=== PATIENT | female | born 1995 | race American Indian/Alaskan Native ===

== ENCOUNTER 2018-08-31 21:44 | Emergency (ER) | payer OTHER ==
[2018-08-31 23:01] LABS: Bacteria,Urine 1+ /HPF (Negative); Bilirubin,Urine NEG (Negative); Blood,Urine NEG (Negative); Color,Urine Yellow (Yellow); Mucus,Urine 2+ /HPF; Urobilinogen,Urine < 2.0 mg/dL (<2.0); WBC,Urine > 182.0 /HPF (0.0-6.0)
[2018-08-31 23:02] LABS: HCG Qualitative,Urine Negative (Negative)
[2018-09-01] MEDS ORDERED: ZOFRAN ODT PO ONE (00:58)
[2018-09-01] MEDS ORDERED: IBUPROFEN PO ONE (00:58)
[2018-09-01] MEDS ORDERED: MACROBID PO ONE (00:58)
--- NOTE | 2018-09-01 01:40 | Emergency Department Report ---
ED Female HPI - General Chief complaint: Abdominal Pain Stated complaint: UTI ABDOMINAL PAIN Time Seen by Provider: 09/01/18 00:58 Source: patient Mode of arrival: Ambulatory Limitations: No Limitations - History of Present Illness Initial comments: Patient is a 23-year-old -[place] female who presents for dysuria frequency urgency 2 days patient denies vaginal discharge no hematuria no flank or back pain no nausea vomiting pain is described as 3/10 and suprapubic cramping and spasm per patient patient denies flow problem again no hematuria no history of renal stones no fever or chills MD Complaint: dysuria Onset/Timin -: days(s) Location: suprapubic Radiation: suprapubic Severity: moderate Severity scale (0 -10): 4 Consistency: intermittent Improves with: none Worsens with: urination Are you Now?: No Last Menstrual Period: 08/15/18 EDC: 05/22/19 Associated Symptoms: abdominal pain (superpubic pain ), dysuria. denies: nausea/vomiting, fever/chills, hematuria - Related Data Sexually active: No Previous Rx's Medication Instructions Recorded Last Taken Type Ibuprofen 800 mg PO TID PRN #30 tablet 09/01/18 Unknown Rx Nitrofurantoin Monohyd/M-Cryst 100 mg PO BID 7 Days #14 capsule 09/01/18 Unknown Rx [Macrobid 100 mg Capsule] Allergies Allergy/AdvReac Type Severity Reaction Status Date / Time No Known Allergies Allergy Unverified 02/06/16 17:05 ED Review of Systems ROS: Stated complaint: UTI ABDOMINAL PAIN Other details as noted in HPI Constitutional: denies: chills, fever Eyes: denies: eye pain, eye discharge, vision change ENT: denies: ear pain, throat pain Respiratory: denies: cough, shortness of breath, wheezing Cardiovascular: denies: chest pain, palpitations Endocrine: no symptoms reported Gastrointestinal: denies: abdominal pain, nausea, diarrhea Genitourinary: urgency, dysuria, frequency. denies: hematuria, discharge, abnormal menses, dyspareunia Musculoskeletal: denies: back pain, joint swelling, arthralgia Skin: denies: rash, lesions Neurological: denies: headache, weakness, paresthesias Psychiatric: denies: anxiety, depression Hematological/Lymphatic: denies: easy bleeding, easy bruising ED Past Medical Hx - Past Medical History Previous Medical History?: No - Surgical History Past Surgical History?: No - Social History Smoking Status: Never Smoker Substance Use Type: None - Medications Home Medications: Home Medications Medication Instructions Recorded Confirmed Last Taken Type Ibuprofen 800 mg PO TID PRN #30 tablet 09/01/18 Unknown Rx Nitrofurantoin Monohyd/M-Cryst 100 mg PO BID 7 Days #14 capsule 09/01/18 Unknown Rx [Macrobid 100 mg Capsule] ED Physical Exam - General Limitations: No Limitations General appearance: alert, in no apparent distress - Head Head exam: Present: atraumatic, normocephalic - Eye Eye exam: Present: normal appearance, EOMI - ENT ENT exam: Present: mucous membranes moist - Neck Neck exam: Present: normal inspection, full ROM - Respiratory Respiratory exam: Present: normal lung sounds bilaterally. Absent: respiratory distress, stridor - Cardiovascular Cardiovascular Exam: Present: regular rate, normal rhythm, normal heart sounds. Absent: systolic murmur, diastolic murmur, rubs, gallop - GI/Abdominal GI/Abdominal exam: Present: soft, normal bowel sounds. Absent: distended, tenderness, bruit, hernia - Rectal Rectal exam: Present: deferred - Extremities Exam Extremities exam: Present: normal inspection, full ROM, normal capillary refill - Back Exam Back exam: Present: normal inspection, full ROM. Absent: tenderness, CVA tenderness (R), CVA tenderness (L), rash noted - Neurological Exam Neurological exam: Present: alert, oriented X3, CN II-XII intact, normal gait - Psychiatric Psychiatric exam: Present: normal affect, normal mood - Skin Skin exam: Present: warm, dry, intact, normal color. Absent: rash ED Course Vital Signs 08/31/18 09/01/18 21:57 01:19 Temperature 98.5 F Pulse Rate 86 Respiratory 18 16 Rate Blood Pressure 112/72 O2 Sat by Pulse 100 Oximetry ED Medical Decision Making - Lab Data Labs 08/31/18 Unknown Urine Color Yellow Urine Turbidity Slightly-cloudy Urine pH 7.0 Ur Specific [place] 1.013 Urine Protein 30 mg/dl Urine Glucose (UA) Neg Urine Ketones Neg Urine Blood Neg Urine Nitrite Neg Urine Bilirubin Neg Urine Urobilinogen < 2.0 Ur Leukocyte Esterase Lg Urine WBC (Auto) > 182.0 H Urine RBC (Auto) 22.0 U Epithel Cells (Auto) 1.0 Urine Bacteria (Auto) 1+ Urine WBC Clumps 2+ Urine Mucus 2+ Urine HCG, Qual Negative - Medical Decision Making HCG: neg, UA : pos for leuk, wbc, rbc, pt denies fever or chills no n/v pt denies urinary flow problem no hematuria no hx of renal stones there is no vaginal discharge no vagina bleeding , plan dc to home with rx for macrobid, ibuprofen, pt will follow up with pcp in 2 days pt verbalized agreement and understanding of discharge plan. Critical care attestation.: If time is entered above; I have spent that time in minutes in the direct care of this critically ill patient, excluding procedure time. ED Disposition Clinical Impression: UTI (urinary tract infection) Qualifiers: Urinary tract infection type: acute cystitis Hematuria presence: without hematuria Qualified Code(s): N30.00 - Acute cystitis without hematuria Disposition: DC-01 TO HOME OR SELFCARE Is pt being admited?: No Does the pt Need Aspirin: No Condition: Stable Instructions: Abdominal Pain (ED) Prescriptions: Ibuprofen 800 mg PO TID PRN #30 tablet PRN Reason: pain Nitrofurantoin Monohyd/M-Cryst [Macrobid 100 mg Capsule] 100 mg PO BID 7 Days #14 capsule Referrals: [facility] [Outside] - 3-5 Days Forms: Work/School Release Form(ED) Time of Disposition: 01:50
[2018-09-01 02:00] VITALS: BP 110/71
== END 2018-09-01 02:00 | disposition home or self-care (01) ==
LOC: ED 21:44
DX: N39.0 Urinary tract infection, site not specified (principal)
CPT/HCPCS: 81001; 81025; Q0162

== ENCOUNTER 2019-08-08 13:55 | Emergency (ER) | payer SELFPAY ==
--- NOTE | 2019-08-08 14:43 | Emergency Department Report ---
ED Rash HPI - HPI Location: Chest, Back Suspected Cause: Other Rash Symptoms: Yes Blistering, No Itching, No Facial Swelling, No Tongue/Oral Swelling, No Breathing Difficulties, No Choking Sensation, No Wheezing/Dyspnea, No Peeling, No Fever, No Lightheaded, No Malaise, No Myalgias Severity: moderate Other History: This is a 24-year-old female who presents the ED complaining of red painful rash localized to her under her breasts going across to her back. Patient states she noticed this rash on Monday 6 days ago. Patient states she has been putting cortisone cream on it thinking it was a rash. Until her dad told her with shingles. He denies fever/chills/nausea vomiting or any other symptoms. <MAULIK TORRES - Last Filed: 08/08/19 17:07> <FLORENCE VALLEJO - Last Filed: 08/08/19 18:28> - HPI Chief Complaint: Skin Rash Stated Complaint: SHINGLES Time Seen by Provider: 08/08/19 14:34 ED Review of Systems ROS: Stated complaint: SHINGLES Other details as noted in HPI Comment: All other systems reviewed and negative <MAULIK TORRES - Last Filed: 08/08/19 17:07> ROS: Stated complaint: SHINGLES Other details as noted in HPI <FLORENCE VALLEJO - Last Filed: 08/08/19 18:28> ED Past Medical Hx - Past Medical History Previous Medical History?: No - Surgical History Past Surgical History?: No - Social History Smoking Status: Never Smoker <MAULIK TORRES - Last Filed: 08/08/19 17:07> <FLORENCE VALLEJO - Last Filed: 08/08/19 18:28> - Medications Home Medications: Home Medications Medication Instructions Recorded Confirmed Last Taken Type Ibuprofen [Ibuprofen 800] 800 mg PO TID PRN #30 tablet 09/01/18 Unknown Rx Nitrofurantoin Monohyd/M-Cryst 100 mg PO BID 7 Days #14 capsule 09/01/18 Unknown Rx [Macrobid 100 mg Capsule] Acyclovir [Zovirax Tab] 800 mg PO Q8H #30 tab 08/08/19 Unknown Rx Ibuprofen [Motrin] 800 mg PO Q8HR #30 tablet 08/08/19 Unknown Rx Lidocaine HCl [Pain Relief] 1 day TP TID #1 cream..g. 08/08/19 Unknown Rx Rash Exam - Exam General: Vital signs noted. No distress. Alert and acting appropriately. HEENT: No Periorbital Edema, No Conjuctival Injection, No Chemosis, No Perioral Edema, No Tongue Edema, No Uvular Edema, No Compromised Airway, No Drooling Lungs: Yes Good Air Exchange (Normal Breath Sounds), No Wheezes, No Ronchi, No Stridor, No Cough, No Labored Respirations, No Retractions, No Use of Accessory Muscles, No Other Abnormal Lung Sounds Heart: Yes Regular, No Murmur Skin: Yes Maculopapular Rash, Yes Bulla(e), Yes Tenderness, Yes Erythema, No Urticarial Rash, No Morbilliform rash, No Excoriations, No Weeping, No Edema, No Encrustations, No Other (Grouped vesicular, erythematous raised lesions spread from right under breast along the dermatome to the back) Other: Positive: Abdomen Normal, Neurologic Normal, Musculoskeletal Normal <MAULIK TORRES - Last Filed: 08/08/19 17:07> - Exam General: Vital signs noted. No distress. Alert and acting appropriately. <FLORENCE VALLEJO - Last Filed: 08/08/19 18:28> ED Course Vital Signs 08/08/19 13:59 Temperature 98.0 F Pulse Rate 90 Respiratory 20 Rate Blood Pressure 114/77 O2 Sat by Pulse 100 Oximetry <MAULIK TORRES - Last Filed: 08/08/19 17:07> Vital Signs 08/08/19 08/08/19 13:59 15:35 Temperature 98.0 F 98.2 F Pulse Rate 90 77 Respiratory 20 16 Rate Blood Pressure 114/77 Blood Pressure 106/68 [Right] O2 Sat by Pulse 100 Oximetry <FLORENCE VALLEJO - Last Filed: 08/08/19 18:28> ED Medical Decision Making - Medical Decision Making This 24-year-old female presents with shingles dermatitis. Discussed that rash is contagious. Discussed medication and take as prescribed. Vital signs are normal patient is in no acute distress. Discussed with patient to follow-up with her primary care physician. <MAULIK TORRES - Last Filed: 08/08/19 17:07> - Medical Decision Making I had an extensive conversation with Rita. I was informed by pharmacy operations manager that she is . I strongly recommended not to take the acyclovir. In fact I have discontinued acyclovir and ibuprofen prescriptions. I recommended Tylenol and lidocaine cream. Her main concern is severe pain. <FLORENCE VALLEJO - Last Filed: 08/08/19 18:28> Critical care attestation.: If time is entered above; I have spent that time in minutes in the direct care of this critically ill patient, excluding procedure time. <MAULIK TORRES - Last Filed: 08/08/19 17:07> Critical care attestation.: If time is entered above; I have spent that time in minutes in the direct care of this critically ill patient, excluding procedure time. <FLORENCE VALLEJO - Last Filed: 08/08/19 18:28> ED Disposition Is pt being admited?: No Does the pt Need Aspirin: No Time of Disposition: 14:53 <MAULIK TORRES - Last Filed: 08/08/19 17:07> Is pt being admited?: No Does the pt Need Aspirin: No <FLORENCE VALLEJO - Last Filed: 08/08/19 18:28> Clinical Impression: Herpes zoster dermatitis Disposition: DC-01 TO HOME OR SELFCARE Condition: Stable Instructions: Herpes Zoster (ED) Additional Instructions: Make sure to follow up with the primary care physician as discussed. Take all your medications as you've been prescribed. If you have any worsening symptoms or develop new symptoms please return to ED immediately. Prescriptions: Ibuprofen [Motrin] 800 mg PO Q8HR #30 tablet Lidocaine HCl [Pain Relief] 1 day TP TID #1 cream..g. Acyclovir [Zovirax Tab] 800 mg PO Q8H #30 tab Referrals: [facility] [Outside] - 3-[address] [facility] [place] [Outside] - 3-5 Days Forms: Work/School Release Form(ED)
[2019-08-08] MEDS ORDERED: IBUPROFEN 800 MG TAB PO ONE (15:30)
[2019-08-08 15:42] VITALS: BP 106/68
== END 2019-08-08 15:36 | disposition home or self-care (01) ==
LOC: ED 13:55
DX: B02.8 Zoster with other complications (principal)
CPT/HCPCS: 99282